=== PATIENT | male | born 1985 | race Caucasian/White ===

== ENCOUNTER 2020-06-19 21:08 | Observation (INO) | payer BC ==
[~2020-06-19] VITALS: Ht 185.4 cm; Wt 87.4 kg
[2020-06-19 21:57] LABS: BASO % 0.2 % (0.0-2.0); EOS % 0.1 % (0-4.0); GRAN # 12.6 (1.4-6.5); HEMATOCRIT 46.2 % (42.0-52.0); HEMOGLOBIN 15.6 g/dl (13.5-18.0); LYMPH # 0.9 (1.2-3.4); LYMPH % 6.1 % (20.0-51.0); MEAN CELL VOLUME 90 fl (80.0-100.0); MEAN CORPUSCULAR HEMOGLOBIN 31 pg (27.0-31.0); MEAN CORPUSCULAR HGB CONC 34 g/dl (33.0-37.0); MEAN PLATELET VOLUME 9.3 fl (7.4-10.4); MONO # 0.4 (0.1-0.6); MONO % 3.1 % (1.7-9.3); PLATELET COUNT 249 K/mm3 (130-400); RED BLOOD COUNT 5.11 M/mm3 (4.20-5.60); REDCELL DISTRIBUTION WIDTH-CV 12.2 % (11.5-14.5)
[2020-06-19 22:30] LABS: ALBUMIN 5.1 gm/dL (3.5-5.0); BILIRUBIN,TOTAL 0.9 mg/dL (0.0-1.0); C-REACTIVE PROTEIN 2.3 mg/dL (0.0-0.9); CALCIUM 9.6 mg/dL (8.4-10.2); CREATININE, serum 1.09 (0.66-1.25); POTASSIUM 4.2 mmol/L (3.4-5.0); TOTAL PROTEIN 8.5 gm/dL (6.4-8.2)
[2020-06-20] VITALS (9 sets, daily range): BP systolic 102–134; BP diastolic 60–75; PULSE 95–117; TEMP 98–100.1
[2020-06-20] MEDS ORDERED: ZESTRIL 10MG10 MG PO (07:06)
[2020-06-20] MEDS ORDERED: QVAR REDIHALE10.6 G1 IH (07:07)
[2020-06-20] MEDS ORDERED: ULTRAM 50MG TAB50 MG PO (11:31)
[2020-06-20] MEDS ORDERED: AMOXICILLIN 8751 TAB PO (11:31)
--- NOTE | 2020-06-20 12:30 | NUR ---
Patient is back from surgery. He is alert and oriented. He continues to have an elevated temp but is better than it was on admit. Currently 99.9. Patient stated having minimal pain at this time, denies nausea. Tolerating clear liquids without nausea. Lapsites to abdomen are intact, no drainage, no reddness. No other changes at this time. Call light within reach. Oriented patient to room.
--- NOTE | 2020-06-20 14:00 | NUR ---
Patient is having increased pain and his temp is 100.0. Spoke with Dr Long about the temp still being elevated, he ordered a now dose of toradol and ultram for pain since that is what he discharging with. Dr Long wants notified if patients temp does not resolve after toradol because patient will stay the night, let the patient know. No other changes at this time. Call light within reach.
--- NOTE | 2020-06-20 16:40 | NUR ---
Patient is discharging home. His temp has stayed steady around 98.2, notified Dr Long before discharge. Patients at bedside. She picked up his medications for him. He changed his follow up appointment already. Copies of discharge instructions sent with patient. Belongings sent with patient. IV discontinued. Discharge instructions discussed with patient. No other changes at this time. Call light within reach.
== END 2020-06-20 16:40 | disposition home or self-care (01) ==
LOC: COL.ER 21:08 → SURG 23:11
PROVIDERS: Emergency Medicine; ADMIT Surgery
DX: K35.80 Unspecified acute appendicitis (principal)
CPT/HCPCS: G0378; J0690; J0696; J1100; J1885; J2270; J2405; J2704; J3010; J7030; J7120; Q9967